=== PATIENT | male | born 1965 | race Caucasian/White ===

== ENCOUNTER 2019-02-18 00:33 | Emergency (ER) | payer BC ==
[2019-02-18] MEDS ORDERED: CEFTRIAXONE INJ 1000 MG VIAL IV ONE (02:09)
[2019-02-18] MEDS ORDERED: SULFAMETHOXAZOLE/TRIMETHOPRIM 800-160 MG TABLET PO ONE (02:09)
[2019-02-18] MEDS ORDERED: OXYCODONE HCL IR 5 MG TABLET PO ONE (02:09)
[2019-02-18] MEDS ORDERED: ONDANSETRON HCL INJ/PF 4 MG/2 ML SDV IV ONE (02:10)
--- NOTE | 2019-02-18 02:11 | ER Document Report ---
ED Medical Screen (RME) - General Chief Complaint: Skin Problem Stated Complaint: RIGHT LEG PAIN Time Seen by Provider: 02/18/19 02:09 Notes: 54-year-old male that comes emergency department with chief complaint of possible infection in his right leg. He states this started today when he started noticing pain, redness, and now the redness is spreading in his leg. He reports chills earlier today. He denies vomiting, recorded fever. He states he was told he is a "borderline diabetic". Tetanus is up-to-date within 5 years. Past medical history of COPD/smoking. TRAVEL OUTSIDE OF THE [place] IN LAST 30 DAYS: No - Related Data Allergies/Adverse Reactions: No Known Allergies Allergy (Unverified 08/24/15 17:35) Past Medical History Pulmonary Medical History: Reports: Hx COPD Physical Exam - Vital signs Vitals: Temp Pulse Resp BP Pulse Ox 98.7 F 109 H 18 119/74 93 02/18/19 00:43 02/18/19 00:43 02/18/19 00:43 02/18/19 00:43 02/18/19 00:43 - Extremities General lower extremity: Other - Right distal anterior tibial area with pain, erythema, abnormal heat, tenderness. Patient limps on the leg. Course - Re-evaluation Re-evalutation: I have greeted and performed a rapid initial assessment of this patient. A comprehensive ED assessment and evaluation of the patient, analysis of test results and completion of the medical decision making process will be conducted by additional ED providers. - Vital Signs Vital signs: Temp Pulse Resp BP Pulse Ox 98.7 F 109 H 18 119/74 93 02/18/19 00:43 02/18/19 00:43 02/18/19 00:43 02/18/19 00:43 02/18/19 00:43
[2019-02-18 02:54] LABS: HEMATOCRIT 50.4 % (37.9-51.0); HEMOGLOBIN 16.9 g/dL (13.5-17.0); MEAN CORPUSCULAR HEMOGLOBIN 30.9 pg (27.0-33.4); MEAN CORPUSCULAR HGB CONC 33.5 g/dL (32.0-36.0); MEAN CORPUSCULAR VOLUME 92 fl (80-97); PLATELET COUNT 185 10^3/uL (150-450); RED BLOOD COUNT 5.47 10^6/uL (4.35-5.55); RED CELL DISTRIBUTION WIDTH 14.2 % (11.5-14.0); WHITE BLOOD COUNT 21.3 10^3/uL (4.0-10.5)
[2019-02-18 03:16] LABS: ABSOLUTE LYMPHOCYTES# (MANUAL) 0.6 10^3/uL (0.5-4.7); ABSOLUTE MONOCYTES # (MANUAL) 1.3 10^3/uL (0.1-1.4); BAND NEUTROPHILS % (MANUAL) 4 % (3-5); BASOPHILS % (MANUAL) 0 % (0-2); EOSINOPHILS % (MANUAL) 0 % (0-6); LYMPHOCYTES % (MANUAL) 3 % (13-45); MONOCYTES % (MANUAL) 6 % (3-13); RBC MORPHOLOGY COMMENT NORMO-CYTIC/CHROMIC; SEGMENTED NEUTROPHILS % (MAN) 87 % (42-78); TOTAL CELLS COUNTED 100
[2019-02-18 03:17] LABS: PLATELET COMMENT ADEQUATE
[2019-02-18 03:19] LABS: ANION GAP 9 (5-19); BLOOD UREA NITROGEN 15 mg/dL (7-20); CALCIUM 9.9 mg/dL (8.4-10.2); CARBON DIOXIDE 29 mmol/L (22-30); CHLORIDE 99 mmol/L (98-107); GLUCOSE 123 mg/dL (75-110); POTASSIUM 4.4 mmol/L (3.6-5.0)
--- NOTE | 2019-02-18 04:12 | ER Document Report ---
ED General - General Chief Complaint: Skin Problem Stated Complaint: RIGHT LEG PAIN Time Seen by Provider: 02/18/19 02:09 Primary Care Provider: CHANTALE PEMBERTON PA-C [Primary Care Provider] - 02/20/19 Notes: Patient is a pleasant 54-year-old male who presents with complaint of redness and swelling to the right leg that progressed over the last 24 hours. Said he had a leg infection similar to this several years in the past that cleared up with outpatient antibiotics. Said he did feel febrile at home earlier but now feels much improved. He was seen in triage by the physician review assistant and given a dose of antibiotics. He says he feels much improved after this. Denies any vomiting. No diarrhea. No abdominal pain. No other complaints at this time. TRAVEL OUTSIDE OF THE [place] IN LAST 30 DAYS: No - Related Data Allergies/Adverse Reactions: No Known Allergies Allergy (Unverified 08/24/15 17:35) Past Medical History - Social History Smoking Status: Unknown if Ever Smoked Frequency of alcohol use: None Drug Abuse: None Family History: Reviewed & Not Pertinent Pulmonary Medical History: Reports: Hx COPD Review of Systems - Review of Systems Notes: My Normal Review Basic REVIEW OF SYSTEMS: CONSTITUTIONAL : Subjective fever EENT: Denies eye, ear, throat, or mouth pain or symptoms. Denies nasal or sinus congestion. CARDIOVASCULAR: Denies chest pain. RESPIRATORY: Denies cough, cold, or chest congestion. Denies shortness of breath, difficulty breathing, or wheezing. GASTROINTESTINAL: Denies abdominal pain. Denies nausea, vomiting, or diarrhea. MUSCULOSKELETAL: Pain right leg. SKIN: Cellulitis right leg NEUROLOGICAL: Denies altered mental status or loss of consciousness. Denies headache. Denies weakness or paralysis or loss of use of either side. Denies problems with gait or speech. Denies sensory or motor loss. ALL OTHER SYSTEMS REVIEWED AND NEGATIVE. Physical Exam - Vital signs Vitals: Temp Pulse Resp BP Pulse Ox 98.7 F 109 H 18 119/74 93 02/18/19 00:43 02/18/19 00:43 02/18/19 00:43 02/18/19 00:43 02/18/19 00:43 - Notes Notes: General Appearance: Well nourished, alert, cooperative, no acute distress, no obvious discomfort. Well-appearing. Vitals: reviewed, See vital signs table. Eyes: PERRL, EOMI, Conjuctiva clear Mouth: No decreasd moisture Lungs: No wheezing, No rales, No rhonci, No accessory muscle use, good air exchange bilaterally. Heart: Normal rate, Regular rythm, No murmur, no rub Abdomen: Normal BS, soft, No rigidity, No abdominal tenderness, No guarding, no rebound, no abdominal masses, no organomegaly Extremities: strength 5/5 in all extremities, good pulses in all extremities, some circumferential redness to the right lower extremity that extends from approximately the ankle to just below the knee. Good distal pulses. No crepitus to palpation. No pain out of proportion to exam. No fluctuance or concern for abscess at this time. Skin: warm, dry, appropriate color, no rash Neuro: speech clear, oriented x 3, normal affect, responds appropriately to questions. Course - Re-evaluation Re-evalutation: 02/18/19 05:28 I did juan josé the borders of the redness and the patient's leg with a marking pen. I did offer admission as patient does have a white blood cell count 21,000. Patient says that he feels much improved and would prefer to try outpatient therapy. Clinically patient does look well at this time. I informed him that he must have a very low threshold to return to the ER if he has any spreading redness whatsoever, fevers, or feels like he is worsening in any way. Patient is agreeable to this and will be discharged home with strong return precautions. Dictation of this chart was performed using voice recognition software; therefore, there may be some unintended grammatical errors. - Vital Signs Vital signs: Temp Pulse Resp BP Pulse Ox 97.9 F 88 18 118/74 94 02/18/19 04:20 02/18/19 04:20 02/18/19 04:20 02/18/19 04:20 02/18/19 04:20 - Laboratory Result Diagrams: 02/18/19 02:35 02/18/19 02:35 Laboratory results interpreted by me: 02/18/19 02/18/19 02:35 02:35 WBC 21.3 H RDW 14.2 H Seg Neuts % (Manual) 87 H Lymphocytes % (Manual) 3 L Abs Neuts (Manual) 19.4 H Sodium 136.9 L Glucose 123 H Discharge - Discharge Clinical Impression: Cellulitis Qualifiers: Site of cellulitis: unspecified site Qualified Code(s): L03.90 - Cellulitis, unspecified Condition: Good Disposition: HOME, SELF-CARE Additional Instructions: You have cellulitis which is infection of the skin of your leg. As discussed with you do have a high white blood cell count and therefore admission to the hospital would be an acceptable treatment plan. We do respect decision to want to go home and try outpatient treatment. You must have a very low threshold to return to the ER immediately if you have any spreading redness, swelling, fevers, or if you feel like your leg is worsening in any way. Please follow-up with your doctor on Wednesday for reevaluation. Take the antibiotic as prescribed. The antibiotic we have prescribed you is called doxycycline. Doxycycline will make your skin more sensitive to the sun so please make sure you keep your skin covered or wear sunscreen whenever out in the sun. Prescriptions: Doxycycline Hyclate 100 mg PO BID #14 capsule Referrals: CHANTALE PEMBERTON PA-C [Primary Care Provider] - 02/20/19
[2019-02-18 04:22] VITALS: BP 118/74
== END 2019-02-18 04:25 | disposition home or self-care (01) ==
LOC: ER 00:33
DX: L03.90 Cellulitis, unspecified (principal); M79.604 Pain in right leg; J44.9 Chronic obstructive pulmonary disease, unspecified
CPT/HCPCS: 99283; 96375; 96365; 36415; 85025; 80048; J0696; J2405

== ENCOUNTER 2019-02-19 16:28 | Inpatient (IN) | payer BC ==
[2019-02-19] MEDS ORDERED: KETOROLAC TROMETHAMINE INJ/PF 30 MG/1 ML SDV IV ONE (17:05)
--- NOTE | 2019-02-19 17:05 | ER Document Report ---
ED Medical Screen (RME) - General Chief Complaint: Leg Swelling Stated Complaint: RE-VISIT/RIGHT LEG PAIN Time Seen by Provider: 02/19/19 16:57 Primary Care Provider: CHANTALE PEMBERTON PA-C [Primary Care Provider] - Follow up as needed Mode of Arrival: Ambulatory Information source: Patient Notes: 54-year-old male presented to ED for redness pain and swelling to the right lower leg. The redness has gone outside of the lines that were drawn on his leg after he was here. Patient alert and oriented respirations regular and unlabored speaking. I have greeted and performed a rapid initial assessment of this patient. A comprehensive ED assessment and evaluation of the patient, analysis of test results and completion of medical decision making process will be conducted by an additional ED providers. TRAVEL OUTSIDE OF THE [place] IN LAST 30 DAYS: No - Related Data Allergies/Adverse Reactions: No Known Allergies Allergy (Verified 02/19/19 16:29) Past Medical History Pulmonary Medical History: Reports: Hx COPD Physical Exam - Vital signs Vitals: Temp Pulse Resp BP Pulse Ox 97.9 F 93 18 170/87 H 93 02/19/19 16:33 02/19/19 16:33 02/19/19 16:33 02/19/19 16:33 02/19/19 16:33 Course - Vital Signs Vital signs: Temp Pulse Resp BP Pulse Ox 97.9 F 93 18 170/87 H 93 02/19/19 16:33 02/19/19 16:33 02/19/19 16:33 02/19/19 16:33 02/19/19 16:33 Doctor's Discharge - Discharge Referrals: CHANTALE PEMBERTON PA-C [Primary Care Provider] - Follow up as needed
--- NOTE | 2019-02-19 18:23 | RADIOLOGY REPORT (SQ) ---
EXAM DESCRIPTION: VENOUS UNILATERAL LOWER COMPLETED DATE/TIME: 02/19/2019 6:13 pm REASON FOR STUDY: red swelling painful right leg COMPARISON: None. TECHNIQUE: Dynamic and static sanchez scale and color images acquired of the right leg venous system. S elected spectral images acquired with additional compression and augmentation maneuvers. The contrala teral common femoral vein and saphenofemoral junction were also imaged. Images stored on PACS. LIMITATIONS: Lower leg edema. FINDINGS: COMMON FEMORAL: Normal phasicity, compression and augmentation. No visualized echogenic ma terial on sanchez scale. No defects on color images. FEMORAL: Normal compression and augmentation. No visualized echogenic material on sanchez scale. No defe cts on color images. POPLITEAL: Normal compression, augmentation. No visualized echogenic material on sanchez scale. No defec ts on color images. CALF VESSELS: Poorly visualized due to lower leg edema. GSV and SSV: Normal compression, augmentation. No visualized echogenic material on sanchez scale. No def ects on color images. ANY DEEP VENOUS INSUFFICIENCY: Not evaluated. ANY EVIDENCE OF POPLITEAL CYST: No. OTHER: Lower leg edema. CONTRALATERAL COMMON FEMORAL VEIN AND SAPHENOFEMORAL JUNCTION: Normal phasicity, compression and augmentation. No visualized echogenic material on sanchez scale. No de fects on color images. IMPRESSION: Evaluation of the calf veins is limited by lower leg soft tissue edema. Within this landeros itation, no evidence of deep venous thrombosis in the right lower extremity. TECHNICAL DOCUMENTATION: JOB ID: [id number] [employer]- All Rights Reserved Reading location - IP/workstation name: [email or web address]
[2019-02-19 19:45] LABS: APPEARANCE,URINE CLOUDY; BILIRUBIN,URINE NEGATIVE (NEGATIVE); COLOR,URINE YELLOW; GLUCOSE, URINE 150 mg/dL (NEGATIVE); KETONES,URINE NEGATIVE (NEGATIVE); LEUKOCYTE ESTERASE,URINE NEGATIVE (NEGATIVE); NITRITE,URINE NEGATIVE (NEGATIVE); PROTEIN,URINE NEGATIVE (NEGATIVE); URINE SPECIFIC GRAVITY 1.021
[2019-02-19 19:49] LABS: ABSOLUTE EOSINOPHILS # (AUTO) 0.1 10^3/uL (0.0-0.6); ABSOLUTE MONOCYTES (AUTO) 1.1 10^3/uL (0.1-1.4); ABSOLUTE NEUT (AUTO) 7.7 10^3/uL (1.7-8.2); BASOPHILS % (AUTO) 0.2 % (0-2); EOSINOPHILS % (AUTO) 0.8 % (0-6); HEMATOCRIT 45.7 % (37.9-51.0); HEMOGLOBIN 15.3 g/dL (13.5-17.0); LYMPHOCYTES % (AUTO) 10.3 % (13-45); MEAN CORPUSCULAR HEMOGLOBIN 31.5 pg (27.0-33.4); MEAN CORPUSCULAR HGB CONC 33.6 g/dL (32.0-36.0); MEAN CORPUSCULAR VOLUME 94 fl (80-97); PLATELET COUNT 153 10^3/uL (150-450); RED BLOOD COUNT 4.87 10^6/uL (4.35-5.55); RED CELL DISTRIBUTION WIDTH 14.3 % (11.5-14.0); SEGMENTED NEUTROPHILS % (AUTO) 77.7 % (42-78); TOTAL CELLS COUNTED % (AUTO) 100 %; WHITE BLOOD COUNT 9.9 10^3/uL (4.0-10.5)
[2019-02-19 20:00] LABS: ALBUMIN 3.9 g/dL (3.5-5.0); ALKALINE PHOSPHATASE 64 U/L (38-126); ANION GAP 8 (5-19); ASPARTATE AMINO TRANSFERASE 17 U/L (17-59); BILIRUBIN,DIRECT 0.2 mg/dL (0.0-0.4); BILIRUBIN,TOTAL 0.3 mg/dL (0.2-1.3); BLOOD UREA NITROGEN 11 mg/dL (7-20); CALCIUM 9.2 mg/dL (8.4-10.2); CARBON DIOXIDE 30 mmol/L (22-30); CHLORIDE 101 mmol/L (98-107); GLUCOSE 94 mg/dL (75-110); POTASSIUM 4.1 mmol/L (3.6-5.0); TOTAL PROTEIN 6.3 g/dL (6.3-8.2)
[2019-02-19 20:30] LABS: ERYTHROCYTE SEDIMENTATION RATE 33 mm/hr (0-20)
--- NOTE | 2019-02-19 21:15 | ER Document Report ---
HPI - HPI Patient complains to provider of: cellulitis rle Time Seen by Provider: 02/19/19 16:57 Onset: Other - 2 days ago Onset/Duration: Sudden, Worse Quality of pain: Achy, Pressure Severity: Moderate Pain Level: 4 Context: 54 yr old male pt, with the listed pmh, here for worsening rle cellulitis x 2 days. states about 56 hrs ago sx initially started. he was seen here for this about 48hrs ago and didn't want admission for iv abx then as his work up revealed a white count of 21k and circumferential erythema and swelling and pain of his rle from his ankle about 3/[address] proximally to his knee. states had lines drawn on his leg about 3-4 inches proximally and distally from this current erythema demarcation 48 hrs ago and was told to return should the erythema extend up to those lines or past them. the erythema came up to those lines tonight so he came back in for re-eval as directed. he has had subjective fevers and rigors. he states he is a borderline diabetic. he takes no meds. pcp is frances in [facility]. he was given rocephin IV 2 days ago while here and dc'd on doxy bid. he has been compliant with the doxy and has his bottle with him. he denies any new injury or trauma. he states the leg has continued to worsen by becoming more red, swollen, and painful and he has just sat around the house and elevated it as he states if he keeps it not elevated for very long it started to hurt a lot worse and he has to then immediately elevate it again to sustain any relief. Pt denies any prior personal cardiac history. no syncope. no palpitations. no hx of mi, cva, tia, or cad. no ripping or tearing sensation. denies any blood thinners. No prior history of blood clots. No recent long distance travel/immobilization, recent surgery, exogenous hormone use, hemoptysis, history of cancer, or calf pain/swelling. No prior history of arrhythmias. denies htn sx or hx of htn. denies being told he ever required meds. he attributes his elevated bp due to his pain. no numbness, fever, cp, sob, elder, cough,abd pain, uti sx, mo, changes in neurologics, weakness or tingling. no surgeries on this extremity. otc meds helping little to none. no recent head injury or prior hx of tbi or head trauma. hasn't otherwise sought ca re until now. no pain anywhere else. pt able to walk but has pain. denies intoxication. pain worse with movement and palpation. better with rest. no other fall or trauma or associated sx Exacerbated by: Standing, Movement, Walking Relieved by: Supine, Remaining still Similar symptoms previously: Yes Recently seen / treated by doctor: Yes - ROS Systems Reviewed and Negative: Yes All other systems reviewed and negative - To include 10 systems, unless mentioned in the hpi. Past Medical History - General Information source: Patient - Social History Smoking Status: Current Every Day Smoker Frequency of alcohol use: Social Drug Abuse: Marijuana Lives with: Family Family History: Reviewed & Not Pertinent Patient has suicidal ideation: No Patient has homicidal ideation: No - Past Medical History Cardiac Medical History: Denies: Hx Atrial Fibrillation, Hx Congestive Heart Failure, Hx Coronary Artery Disease, Hx DVT, Hx Hypertension, Hx Peripheral Vascular Disease, Hx Pulmonary Embolism Pulmonary Medical History: Reports: Hx COPD - not on any meds Endocrine Medical History: Reports: Hx Diabetes Mellitus Type 2 - borderline per pt-not on any meds Malignancy Medical History: Reports None GI Medical History: Denies: Hx Cirrhosis Musculoskeletal Medical History: Denies Hx Gout Skin Medical History: Reports Hx Cellulitis, Denies Hx Eczema, Denies Hx Psoriasis Traumatic Medical History: Denies: Hx Fractures Infectious Medical History: Denies: Hx C-Diff, Hx Hepatitis, Hx HIV, Hx VRE Past Surgical History: Denies: Hx Orthopedic Surgery - Immunizations Immunizations up to date: Yes Vertical Provider Document - CONSTITUTIONAL Agree With Documented VS: Yes Exam Limitations: No Limitations Notes: GENERAL_APPEARANCE: alert and oriented x 3, mood and affect wnl, cooperative, m ild obvious discomfort. Pleasant, obese middle aged white male, smiling, speaking in full sentences, in no sign of pain or resp distress other than appearing in pain if you palpate his rle erythema, easily sitting up, brother at bedside VITALS: reviewed, see vital signs table. HEAD: no_swelling\tenderness on the head, normocephalic, atraumatic NECK: supple, no_neck_tenderness. full rom and full strength. HEART: RRR LUNGS: CTAB, good air exchange diffusely BACK: no_back_tenderness EXTREMITIES: good pulse in all extremities, right leg: right lower leg from just distal to the knee joint and patella to just proximal the ankle jt there is diffuse erythema with some darkened erythema anteriorly. there is marking on the skin for tracking purposes that the erythema has aligned up with now both proximally and distally. there are a few scattered erythematous papulopustules <1mm in diameter proximal to his right knee on his upper leg that appear like possible ant bites, along with some dry skin areas vs crusted over and prior scared areas measuring approx <5mm and circular white flaky like diffusely but scattered and mild throughout the stated erythema. it is nearly circumferential- the erythema, and worse in swelling, pain, redness, and size per pt, no palpable cords. no posterior leg ttp. no sign of septic jt, compartment syndrome or gout. no oozing or bleeding. 2-3+ pitting edema in the erythema of the rle. none in the lle. lle wnl, and no_abrasions\lacerations other than as noted. Full rom and full strength. slight antalgic gait. good hand cutting pressman. brisk cap refill. no other shortening or rotation of the limbs or obvious deformities to suggest trauma unless otherwise noted. no other swelling or ttp. neg nino sign. neg foot drop. neg kulkarni squeeze. no sign of cold leg. normal temp of the foot to palpation. SKIN: warm, dry, good_color. no other grossly visible rash. no other grossly visible overlying skin changes to suggest trauma NEURO: cerebellar function intact, motor_intact and sensory_intact in injured_extremity. cranial nerves 2-12 intact - INFECTION CONTROL TRAVEL OUTSIDE OF THE [place] IN LAST 30 DAYS: No Course - Re-evaluation Re-evalutation: 02/19/19 21:14 Pt here for worsening and somewhat impressive rle cellulitis that has failed out pt po abx x 48hrs. sx initially started around 56hrs ago abruptly and seems to be abruptly worsening which is concerning given pt has elevated and rested his leg and endorses compliance with abx. labs unremarkable and as noted other than an elevated sed rate and crp. his white count was 21k 2 days ago when he was here which i am unsure if this was a lab error given his wbc count is normal today; however, exam appears to be significantly worse. bcx pending. lactic wnl. responded well to tx here and is pain controlled. afebrile. triage ordered a rle doppler US to r/o dvt/pe and the final rad read states the study was limited due to her body habitus but was grossly unremarkable otherwise and showed no grossly visible dvt per rad or acute finding and was other belle neg for anything acute per rad and reviewed by myself. pt informed of her findings. advised her that her bp was also elevated here today. she denies htn sx. advised she needs to f/u with his pcp for recheck of this as she may need to be placed on bp meds. f/u with pcp/obgyn once she is deemed safe for dc per hospitalist. pt understands and agrees to plan. vss. neurononfocal. secondary to pts worsening cellulits and likely failure of out pt abx, i did initiate the vanco and zosyn per 20mg/kg dose of vanco and 4.5g dose zosyn per dr grey. pt discussed with dr willard (hospitalist) who graciously agreed to accept the pt to their service for further workup and tx. care transferred to the hospitalist in stable condition. please refer to their note for further details of her visit. vss On reexam, pt improved with tx listed. remained stable. nontoxic. well appearing. pain controlled. case discussed with ER Attending, Dr. solorio, who directed and agrees with plan of care and advised to admit for failure of out pt abx for his RLE cellulitis and to defer to hospitalist's recommendations for IV abx choice. Documentation achieved through voice recording which may lead to some occasional accidental typographical errors. Extensive efforts have been made to proof read documentation to make sure these are the least as possible. 02/19/19 22:55 Category Date Time Status VENOUS UNILATERAL LOWER [CARDIO] Stat Cardiology 02/19/19 17:00 Completed BLOOD CULTURE [MC] Stat Lab 02/19/19 20:30 Received C-REACTIVE PROTEIN [CHEM] Stat Lab 02/19/19 19:17 Completed CBC WITH DIFF [HEME] Stat Lab 02/19/19 19:17 Completed COMPREHENSIVE METABOLIC PANEL [CHEM] Stat Lab 02/19/19 19:17 Completed LACTIC ACID SEPSIS [CHEM] Stat Lab 02/19/19 19:17 Completed Sed Rate [ERYTHROCYTE SEDIMENTATION RATE] [HEME] Stat Lab 02/19/19 19:17 Completed URINALYSIS [URIN] Stat Lab 02/19/19 19:17 Completed Ketorolac Tromethamine [Toradol Inj/Pf 30 mg/1 ml Sdv] Med 02/19/19 17:05 Discontinued 30 mg IV NOW ONE Nicotine [Nicoderm 14 mg/24 Hr Transdermal Patch] Med 02/19/19 22:04 Discontinued 1 each TD NOW ONE Nicotine [Nicoderm 14 mg/24 Hr Transdermal Patch] Med 02/19/19 22:23 Discontinued 1 each TD NOW ONE Piperacillin Sodium/Tazobactam [Zosyn Inj 3.375 gm Vial Med 02/19/19 22:44 Once ] 4.5 gm IV IVBAG (ED) ONE Vancomycin HCl [Vancocin Inj 1000 mg Vial] Med 02/19/19 22:45 Once 2,412 mg IV NOW ONE 02/19/19 22:56 - Vital Signs Vital signs: Temp Pulse Resp BP Pulse Ox 97.9 F 93 18 170/87 H 93 02/19/19 16:33 02/19/19 16:33 02/19/19 16:33 02/19/19 16:33 02/19/19 16:33 02/20/19 10:14 Temp Pulse Resp BP Pulse Ox 97.6 F 75 14 138/77 H 96 02/20/19 08:16 02/20/19 09:38 02/20/19 09:38 02/20/19 08:16 02/20/19 09:38 - Laboratory Result Diagrams: 02/20/19 05:40 02/20/19 05:40 Laboratory results interpreted by me: 02/19/19 02/19/19 02/19/19 19:17 19:17 19:17 RDW 14.3 H Lymph % (Auto) 10.3 L ESR 33 H C-Reactive Protein 231.0 H Urine Glucose (UA) 150 H Urine Blood SMALL H Urine Urobilinogen 4.0 H 02/19/19 21:14 Labs- Entire Visit 02/19/19 02/19/19 02/19/19 19:17 19:17 19:17 WBC 9.9 RBC 4.87 Hgb 15.3 Hct 45.7 MCV 94 MCH 31.5 MCHC 33.6 RDW 14.3 H Plt Count 153 Lymph % (Auto) 10.3 L [place] % (Auto) 11.0 Eos % (Auto) 0.8 Baso % (Auto) 0.2 Absolute Neuts (auto) 7.7 Absolute Lymphs (auto) 1.0 Absolute Monos (auto) 1.1 Absolute Eos (auto) 0.1 Absolute Basos (auto) 0.0 Seg Neutrophils % 77.7 ESR 33 H Sodium 139.2 Potassium 4.1 Chloride 101 Carbon Dioxide 30 Anion Gap 8 BUN 11 Creatinine 0.74 Est GFR ( Amer) > 60 Est GFR (MDRD) Non-Af > 60 Glucose 94 Lactic Acid 1.2 Calcium 9.2 Total Bilirubin 0.3 Direct Bilirubin 0.2 Neonat Total Bilirubin Not Reportable Neonat Direct Bilirubin Not Reportable Neonat Indirect Bili Not Reportable AST 17 ALT 27 Alkaline Phosphatase 64 C-Reactive Protein 231.0 H Total Protein 6.3 Albumin 3.9 Urine Color Urine Appearance Urine pH Ur Specific [place] Urine Protein Urine Glucose (UA) Urine Ketones Urine Blood Urine Nitrite Urine Bilirubin Urine Urobilinogen Ur Leukocyte Esterase Urine WBC (Auto) Urine RBC (Auto) Urine Mucus (Auto) Urine Ascorbic Acid 02/19/19 19:17 WBC RBC Hgb Hct MCV MCH MCHC RDW Plt Count Lymph % (Auto) [place] % (Auto) Eos % (Auto) Baso % (Auto) Absolute Neuts (auto) Absolute Lymphs (auto) Absolute Monos (auto) Absolute Eos (auto) Absolute Basos (auto) Seg Neutrophils % ESR Sodium Potassium Chloride Carbon Dioxide Anion Gap BUN Creatinine Est GFR ( Amer) Est GFR (MDRD) Non-Af Glucose Lactic Acid Calcium Total Bilirubin Direct Bilirubin Neonat Total Bilirubin Neonat Direct Bilirubin Neonat Indirect Bili AST ALT Alkaline Phosphatase C-Reactive Protein Total Protein Albumin Urine Color YELLOW Urine Appearance CLOUDY Urine pH 7.0 Ur Specific [place] 1.021 Urine Protein NEGATIVE Urine Glucose (UA) 150 H Urine Ketones NEGATIVE Urine Blood SMALL H Urine Nitrite NEGATIVE Urine Bilirubin NEGATIVE Urine Urobilinogen 4.0 H Ur Leukocyte Esterase NEGATIVE Urine WBC (Auto) 0 Urine RBC (Auto) 10 Urine Mucus (Auto) RARE Urine Ascorbic Acid NEGATIVE - Diagnostic Test Radiology reviewed: Image reviewed, Reports reviewed Radiology results interpreted by me: 02/19/19 21:14 Venous Doppler Study 02/19/19 17:00 IMPRESSION: Evaluation of the calf veins is limited by lower leg soft tissue edema. Within this limitation, no evidence of deep venous thrombosis in the right lower extremity. Discharge - Discharge Clinical Impression: Cellulitis of leg, right High blood pressure Qualifiers: Hypertension type: essential hypertension Qualified Code(s): I10 - Essential (primary) hypertension Condition: Good Disposition: ADMITTED INPATIENT Admitting Provider: Candi (Hospitalist) - spoke with hospitalist dr willard at 10:45pm who graciously agreed to accept the pt for further workup and tx Unit Admitted: Medical Floor
[2019-02-19] MEDS ORDERED: NICOTINE 14 MG/24 HR PATCH.TD24 TD ONE ×2 (22:04→22:23)
[2019-02-19] MEDS ORDERED: PIPERACILLIN/TAZOBACTAM 3.375 GM VIAL IV ONE (22:44)
[2019-02-19] MEDS ORDERED: VANCOMYCIN HCL INJ 1000 MG VIAL IV ONE (22:45)
[2019-02-19] MEDS ORDERED: HYDRALAZINE HCL INJ/PF 20 MG/1 ML SDV IV PRN (22:57)
[2019-02-19] MEDS ORDERED: MAG HYDROX/AL HYDROX/SIMETH SUSP 30 ML UDCUP PO PRN (22:58)
[2019-02-19] MEDS ORDERED: MAGNESIUM HYDROXIDE SUSP 30 ML UDCUP PO PRN (22:58)
[2019-02-19] MEDS ORDERED: DEXTROSE 40% GEL 15 GM TUBE PO PRN ×2 (22:59)
[2019-02-19] MEDS ORDERED: DEXTROSE 50%-WATER 25 GM/50 ML DISP.SYRIN IV PRN ×2 (22:59)
[2019-02-19] MEDS ORDERED: GLUCAGON,HUMAN RECOMB 1 MG INJ IM PRN (22:59)
[2019-02-19] MEDS ORDERED: VANCOMYCIN HCL INJ 1000 MG VIAL IV SCH (23:00)
[2019-02-19] MEDS ORDERED: PIPERACILLIN/TAZOBACTAM 3.375 GM VIAL IV PRN (23:15)
[2019-02-19] MEDS ORDERED: LEVALBUTEROL HCL NEB 0.63 MG/3 ML AMPUL NEB PRN (23:44)
[2019-02-20] LABS: FREE T3 3.07 pg/mL (2.77-5.27); FREE T4 (FREE THYROXINE) 0.81 ng/dL (0.78-2.19)
[2019-02-20] MEDS: IBUPROFEN 800 MG TABLET PO PRN (00:12)
[2019-02-20] MEDS: NALBUPHINE HCL INJ 10 MG/1 ML AMPULE IV PRN ×4 (02:11→23:43)
--- NOTE | 2019-02-20 02:11 | PDOC H&P ---
History of Present Illness Admission Date/PCP: 02/19/2019 22:57 CHANTALE PEMBERTON PA-C Patient complains of: Painful swollen right lower extremity History of Present Illness: DHRUV ADAM is a 54 year old male who presented to the emergency room with a 2- day history of a swollen and painful right lower extremity. Patient admits that this is his second ER visit in 2 days for this problem. He admits increased swelling and increased pain in the right lower extremity despite treatment with 1 dose of intravenous Rocephin and oral doxycycline initiated on his previous ER visit 2 days ago. He rates his pain as severe and notes that the pain is been accompanied over the last 24 hours by subjective fever with chills and a decreased ability to ambulate due to the severity of the pain and the worsening of the pain with movement. He notes the pain is relieved somewhat by rest and elevation. He denies prior similar episodes and has not identified any aggravating or ameliorating factors for his right lower extremity pain. In the emergency room he was found to have a worsening appearance of his wound from his previous evaluation 2 days ago despite an improvement in his white blood count. Patient was subsequently admitted to the hospital for further evaluation and treatment due to clinical failure of outpatient treatment. Past Medical History Cardiac Medical History: Denies: Coronary Artery Disease, DVT, Myocardial Infarction, Hyperlipidema, Hypertension, Pulmonary Embolism Pulmonary Medical History: Reports: Chronic Obstructive Pulmonary Disease (COPD), Sleep Apnea - Uses CPAP every night Denies: Asthma EENT Medical History: Denies: Cataracts, Ears - Hearing aids Neurological Medical History: Denies: Hemorrhagic CVA, Ischemic CVA, Seizures Endocrine Medical History: Reports: Diabetes Mellitus Type 2 - Was told he was "borderline" at 1 time, Obesity Denies: Diabetes Mellitus Type 1, Hyperthyroidism, Hypothyroidism Renal/ Medical History: Denies: Chronic Kidney Disease, Nephrolithiasis Malignancy Medical History: Reports: None GI Medical History: Denies: Cirrhosis, Crohn's Disease, Hepatitis, Ulcerative Colitis Musculoskeltal Medical History: Denies: Arthritis, Gout Skin Medical History: Denies: Eczema, Psoriasis Psychiatric Medical History: Reports: Substance Abuse, Tobacco Dependency Denies: Alcohol Dependency Traumatic Medical History: Reports: None Hematology: Denies: Anemia, Bleeding Tendencies Infectious Medical History: Reports: None Past Surgical History Past Surgical History: Reports: None Social History Information Source: Patient Smoking Status: Current Every Day Smoker Frequency of Alcohol Use: Occasional Hx Recreational Drug Use: Yes Drugs: Marijuana - Occasional use Hx Prescription Drug Abuse: No - Advance Directive Resuscitation Status: Full Code Surrogate healthcare decision maker:: Lata Ayala Family History Family History: DM, Hypertension Parental Family History Reviewed: Yes Children Family History Reviewed: No Sibling(s) Family History Reviewed.: Yes Medication/Allergy Home Medications: Albuterol Sulfate [Ventolin 0.083% Neb 2.5 mg/3 mL Ampul] 2.5 mg NEB [id number] #30 vial.neb 08/26/15 Alprazolam [Xanax 0.5 mg Tablet] 0.5 mg PO Q12HP PRN #10 tab 08/26/15 Budesonide [Pulmicort Flexhaler] 180 mcg IH BID #1 aer.[email or web address] 08/26/15 Levofloxacin [Levaquin 750 mg Tablet] 750 mg PO DAILY #8 tablet 08/26/15 Nicotine [Nicoderm 21 mg/24 Hr Transderm Patch] 1 each TD DAILY #30 patch.[email or web address] 08/26/15 Prednisone 20 mg PO ASDIR PRN #15 tablet 08/26/15 Tiotropium [place] [Spiriva Handihaler 5 Cap/Kit (18 Mcg/Cap)] 1 cap IH DAILY #30 kit 08/26/15 Doxycycline Hyclate 100 mg PO BID #14 capsule 02/18/19 Allergies/Adverse Reactions: No Known Allergies Allergy (Verified 02/19/19 16:29) Review of Systems Constitutional: PRESENT: as per HPI, chills, fever(s) Eyes: ABSENT: visual disturbances, other - Ocular pain Ears: ABSENT: hearing changes, other - Ear pain Nose, Mouth, and Throat: ABSENT: mouth pain, sore throat Cardiovascular: ABSENT: chest pain, palpitations Respiratory: ABSENT: cough, dyspnea Gastrointestinal: ABSENT: abdominal pain, constipation, diarrhea, nausea, vomiting Genitourinary: ABSENT: dysuria, hematuria Musculoskeletal: ABSENT: back pain, joint swelling, muscle weakness Integumentary: PRESENT: as per HPI, erythema - Erythema edema and local tenderness in the right lower extremity. ABSENT: pruritus, rash Neurological: ABSENT: confusion, convulsions, focal weakness, memory loss, syncope Psychiatric: ABSENT: anxiety, depression Endocrine: ABSENT: cold intolerance, heat intolerance Hematologic/Lymphatic: ABSENT: easy bleeding, easy bruising Allergic/Immunologic: ABSENT: seasonal rhinorrhea Physical Exam Vital Signs: Temp Pulse Resp BP Pulse Ox 97.9 F 93 18 170/87 H 93 02/19/19 16:33 02/19/19 16:33 02/19/19 16:33 02/19/19 16:33 02/19/19 16:33 Intake & Output 02/17/19 02/18/19 02/19/19 23:59 23:59 23:59 Weight 120.6 kg General appearance: PRESENT: no acute distress, cooperative, morbidly obese Head exam: PRESENT: atraumatic, normocephalic Eye exam: PRESENT: conjunctiva pink. ABSENT: conjunctival injection, scleral icterus Ear exam: PRESENT: normal external ear exam. ABSENT: bleeding, drainage Mouth exam: PRESENT: dry mucosa, neck supple Neck exam: ABSENT: thyromegaly, tracheal deviation Respiratory exam: PRESENT: clear to auscultation evgeny, symmetrical, unlabored Cardiovascular exam: PRESENT: RRR. ABSENT: clicks, gallop, rubs Pulses: PRESENT: normal radial pulses, normal dorsalis pedis pul Vascular exam: PRESENT: normal capillary refill. ABSENT: pallor GI/Abdominal exam: PRESENT: normal bowel sounds, soft Rectal exam: PRESENT: deferred Extremities exam: PRESENT: tenderness - Circumferential erythema and edema with tenderness to palpation and increased warmth to touch from just below the knee to just above the ankle of the right lower leg with no evidence of induration or fluctuance.. ABSENT: joint swelling, pedal edema Musculoskeletal exam: PRESENT: tenderness - As noted above. ABSENT: deformity, dislocation Neurological exam: PRESENT: alert, oriented to person, oriented to place, oriented to time, oriented to situation, CN II-XII grossly intact. ABSENT: motor sensory deficit Psychiatric exam: PRESENT: appropriate affect, normal mood Skin exam: PRESENT: dry, erythema - Erythema edema multiple tenderness of the right calf is previously noted, intact, warm. ABSENT: jaundice, rash, urticaria Results Laboratory Results: 02/19/19 19:17 02/19/19 19:17 02/19/19 02/19/19 02/19/19 19:17 19:17 19:17 WBC 9.9 RBC 4.87 Hgb 15.3 Hct 45.7 MCV 94 MCH 31.5 MCHC 33.6 RDW 14.3 H Plt Count 153 Seg Neutrophils % 77.7 Sodium 139.2 Potassium 4.1 Chloride 101 Carbon Dioxide 30 Anion Gap 8 BUN 11 Creatinine 0.74 Est GFR ( Amer) > 60 Glucose 94 Lactic Acid 1.2 Calcium 9.2 Total Bilirubin 0.3 AST 17 Alkaline Phosphatase 64 C-Reactive Protein 231.0 H Total Protein 6.3 Albumin 3.9 Urine Color Urine Appearance Urine pH Ur Specific [place] Urine Protein Urine Glucose (UA) Urine Ketones Urine Blood Urine Nitrite Ur Leukocyte Esterase Urine WBC (Auto) Urine RBC (Auto) 02/19/19 19:17 WBC RBC Hgb Hct MCV MCH MCHC RDW Plt Count Seg Neutrophils % Sodium Potassium Chloride Carbon Dioxide Anion Gap BUN Creatinine Est GFR ( Amer) Glucose Lactic Acid Calcium Total Bilirubin AST Alkaline Phosphatase C-Reactive Protein Total Protein Albumin Urine Color YELLOW Urine Appearance CLOUDY Urine pH 7.0 Ur Specific [place] 1.021 Urine Protein NEGATIVE Urine Glucose (UA) 150 H Urine Ketones NEGATIVE Urine Blood SMALL H Urine Nitrite NEGATIVE Ur Leukocyte Esterase NEGATIVE Urine WBC (Auto) 0 Urine RBC (Auto) 10 Impressions: Venous Doppler Study 02/19/19 17:00 IMPRESSION: Evaluation of the calf veins is limited by lower leg soft tissue edema. Within this limitation, no evidence of deep venous thrombosis in the right lower extremity. Assessment and Plan - Diagnosis (1) Cellulitis of right lower leg Is this a current diagnosis for this admission?: Yes Plan: Patient will be admitted for IV antibiotic therapy utilizing vancomycin and Zosyn. Daily CBCs and metabolic profiles with magnesium levels will be obtained. Surgical consultation will be considered if the leg does not progress in healing. (2) Pain in right lower leg Is this a current diagnosis for this admission?: Yes Plan: Patient receive Nubain 510 mg IV every 3 hours on an as needed basis for pain via sliding scale. He will also have ibuprofen and Tylenol available for lesser pain. (3) High blood pressure Qualifiers: Hypertension type: essential hypertension Qualified Code(s): I10 - Essential (primary) hypertension Is this a current diagnosis for this admission?: Yes Plan: Patient's blood pressure be monitored closely throughout his hospital course. Initially he will be treated with as needed dosing of hydralazine 20 mg IV every 4 hours for blood pressure greater than 160 systolic or 100 diastolic. (4) Morbid obesity with BMI of 40.0-44.9, adult Is this a current diagnosis for this admission?: Yes Plan: Patient will receive a dietary consult for weight reduction and overall improvement in dietary health. (5) Tobacco use disorder, severe, dependence Is this a current diagnosis for this admission?: Yes Plan: Smoking cessation is advised and counseled briefly at the bedside. A nicotine replacement patch will be available for the patient's use as desired. (6) Sleep apnea in adult Is this a current diagnosis for this admission?: Yes Plan: Patient will be on nocturnal CPAP using his home setting of 8. - Time Time Spent with patient: 15-24 minutes Smoking Cessation Education: 3 to 10 minutes Medications reviewed and adjusted accordingly: Yes Anticipated discharge: Home - Inpatient Certification Based on my medical assessment, after consideration of the patient's comorbidities, presenting symptoms, or acuity I expect that the services needed warrant INPATIENT care.: Yes I certify that my determination is in accordance with my understanding of Medicare's requirements for reasonable and necessary INPATIENT services [42 CFR 412.3e].: Yes Medical Necessity: Failure to Improve With Outpatient Therapy, Need for Pain Control, Need for IV Antibiotics, Risk of Complication if Not Cared For in Hospital
[2019-02-20] MEDS ORDERED: PIPERACILLIN/TAZOBACTAM 3.375 GM VIAL IV ONE (03:58)
[2019-02-20] MEDS: HEPARIN SOD (PORCINE) 5,000 UNIT/ML 1 ML VIAL SUBCUT SCH ×3 (05:29→22:36)
[2019-02-20] MEDS: PIPERACILLIN SODIUM/TAZOBACTAM 3.375 GM in NORMAL SALINE 100 ML IV SCH ×4 (05:44→23:43)
[2019-02-20 06:39] LABS: HEMATOCRIT 43.9 % (37.9-51.0); HEMOGLOBIN 14.7 g/dL (13.5-17.0); MEAN CORPUSCULAR HEMOGLOBIN 31.5 pg (27.0-33.4); MEAN CORPUSCULAR HGB CONC 33.5 g/dL (32.0-36.0); MEAN CORPUSCULAR VOLUME 94 fl (80-97); PLATELET COUNT 160 10^3/uL (150-450); RED BLOOD COUNT 4.66 10^6/uL (4.35-5.55); RED CELL DISTRIBUTION WIDTH 14.2 % (11.5-14.0); WHITE BLOOD COUNT 8.8 10^3/uL (4.0-10.5)
[2019-02-20 07:08] LABS: ANION GAP 8 (5-19); BLOOD UREA NITROGEN 10 mg/dL (7-20); CALCIUM 8.9 mg/dL (8.4-10.2); CARBON DIOXIDE 29 mmol/L (22-30); CHLORIDE 102 mmol/L (98-107); CHOLESTEROL 131.78 mg/dL (0-200); GLUCOSE 110 mg/dL (75-110); POTASSIUM 4.1 mmol/L (3.6-5.0); TRIGLYCERIDES 160 mg/dL (<150)
[2019-02-20 07:19] LABS: DIRECT LDL 85 mg/dL (<100)
[2019-02-20] MEDS: INSULIN REG, HUMAN 100 UNIT/ML 3 ML VIAL (PYX) SUBCUT SCH ×4 (08:12→21:40)
[2019-02-20] MEDS: DOCUSATE SODIUM 100 MG CAPSULE PO SCH ×2 (09:25→17:14)
[2019-02-20] MEDS: FAMOTIDINE 20 MG TABLET PO SCH ×2 (09:25→22:36)
--- NOTE | 2019-02-20 09:56 | PDOC PROGRESS REPORT ---
Subjective Progress Note for:: 02/20/19 Subjective:: 02/20/2019-no complaints this a.m. Reason For Visit: CELLULITIS Physical Exam Vital Signs: Temp Pulse Resp BP Pulse Ox 97.6 F 75 14 138/77 H 96 02/20/19 08:16 02/20/19 09:38 02/20/19 09:38 02/20/19 08:16 02/20/19 09:38 Intake & Output 02/19/19 02/20/19 02/21/19 06:59 06:59 06:59 Intake Total 500 Balance 500 Weight 117.6 kg General appearance: PRESENT: no acute distress, well-developed, well-nourished Head exam: PRESENT: atraumatic, normocephalic Eye exam: PRESENT: conjunctiva pink, EOMI, PERRLA. ABSENT: scleral icterus Ear exam: PRESENT: normal external ear exam Mouth exam: PRESENT: moist, tongue midline Neck exam: ABSENT: carotid bruit, JVD, lymphadenopathy, thyromegaly Respiratory exam: PRESENT: clear to auscultation evgeny. ABSENT: rales, rhonchi, wheezes Cardiovascular exam: PRESENT: RRR. ABSENT: diastolic murmur, rubs, systolic murmur Pulses: PRESENT: normal dorsalis pedis pul Vascular exam: PRESENT: normal capillary refill GI/Abdominal exam: PRESENT: normal bowel sounds, soft. ABSENT: distended, guarding, mass, organolmegaly, rebound, tenderness Rectal exam: PRESENT: deferred Extremities exam: PRESENT: full ROM. ABSENT: calf tenderness, clubbing, pedal edema Neurological exam: PRESENT: alert, awake, oriented to person, oriented to place, oriented to time, oriented to situation, CN II-XII grossly intact. ABSENT: motor sensory deficit Psychiatric exam: PRESENT: appropriate affect, normal mood. ABSENT: homicidal ideation, suicidal ideation Skin exam: PRESENT: dry, intact, warm, other - Cellulitis extending from below right knee to ankle. ABSENT: cyanosis, rash Results Laboratory Results: 02/20/19 05:40 02/20/19 05:40 02/19/19 02/19/19 02/19/19 19:17 19:17 19:17 WBC 9.9 RBC 4.87 Hgb 15.3 Hct 45.7 MCV 94 MCH 31.5 MCHC 33.6 RDW 14.3 H Plt Count 153 Seg Neutrophils % 77.7 Sodium 139.2 Potassium 4.1 Chloride 101 Carbon Dioxide 30 Anion Gap 8 BUN 11 Creatinine 0.74 Est GFR ( Amer) > 60 Glucose 94 Lactic Acid 1.2 Calcium 9.2 Magnesium Total Bilirubin 0.3 AST 17 Alkaline Phosphatase 64 C-Reactive Protein 231.0 H Total Protein 6.3 Albumin 3.9 Triglycerides Cholesterol LDL Cholesterol Direct VLDL Cholesterol HDL Cholesterol TSH Free T4 Free T3 pg/mL Urine Color Urine Appearance Urine pH Ur Specific [place] Urine Protein Urine Glucose (UA) Urine Ketones Urine Blood Urine Nitrite Ur Leukocyte Esterase Urine WBC (Auto) Urine RBC (Auto) 02/19/19 02/19/19 02/20/19 19:17 19:17 05:40 WBC 8.8 RBC 4.66 Hgb 14.7 Hct 43.9 MCV 94 MCH 31.5 MCHC 33.5 RDW 14.2 H Plt Count 160 Seg Neutrophils % Sodium Potassium Chloride Carbon Dioxide Anion Gap BUN Creatinine Est GFR ( Amer) Glucose Lactic Acid Calcium Magnesium Total Bilirubin AST Alkaline Phosphatase C-Reactive Protein Total Protein Albumin Triglycerides Cholesterol LDL Cholesterol Direct VLDL Cholesterol HDL Cholesterol TSH Free T4 0.81 Free T3 pg/mL 3.07 Urine Color YELLOW Urine Appearance CLOUDY Urine pH 7.0 Ur Specific [place] 1.021 Urine Protein NEGATIVE Urine Glucose (UA) 150 H Urine Ketones NEGATIVE Urine Blood SMALL H Urine Nitrite NEGATIVE Ur Leukocyte Esterase NEGATIVE Urine WBC (Auto) 0 Urine RBC (Auto) 10 02/20/19 02/20/19 05:40 05:40 WBC RBC Hgb Hct MCV MCH MCHC RDW Plt Count Seg Neutrophils % Sodium 138.6 Potassium 4.1 Chloride 102 Carbon Dioxide 29 Anion Gap 8 BUN 10 Creatinine 0.70 Est GFR ( Amer) > 60 Glucose 110 Lactic Acid Calcium 8.9 Magnesium 1.9 Total Bilirubin AST Alkaline Phosphatase C-Reactive Protein Total Protein Albumin Triglycerides 160 H Cholesterol 131.78 LDL Cholesterol Direct 85 VLDL Cholesterol 32.0 H HDL Cholesterol 37 L TSH 1.05 Free T4 Free T3 pg/mL Urine Color Urine Appearance Urine pH Ur Specific [place] Urine Protein Urine Glucose (UA) Urine Ketones Urine Blood Urine Nitrite Ur Leukocyte Esterase Urine WBC (Auto) Urine RBC (Auto) Impressions: Venous Doppler Study 02/19/19 17:00 IMPRESSION: Evaluation of the calf veins is limited by lower leg soft tissue edema. Within this limitation, no evidence of deep venous thrombosis in the right lower extremity. Assessment and Plan - Diagnosis (1) Cellulitis of right lower leg Is this a current diagnosis for this admission?: Yes Plan: Patient will be admitted for IV antibiotic therapy utilizing vancomycin and Zosyn. Daily CBCs and metabolic profiles with magnesium levels will be obtained. Surgical consultation will be considered if the leg does not progress in healing 02/20/2019-patient remains on IV vancomycin and Zosyn. Await cultures. Surgical consultation not required at this time. (2) Pain in right lower leg Is this a current diagnosis for this admission?: Yes Plan: Patient receive Nubain 510 mg IV every 3 hours on an as needed basis for pain via sliding scale. He will also have ibuprofen and Tylenol available for lesser pain. 02/20/2019-continue Nubain as ordered previously. (3) High blood pressure Qualifiers: Hypertension type: essential hypertension Qualified Code(s): I10 - Essential (primary) hypertension Is this a current diagnosis for this admission?: Yes Plan: Patient's blood pressure be monitored closely throughout his hospital course. Initially he will be treated with as needed dosing of hydralazine 20 mg IV every 4 hours for blood pressure greater than 160 systolic or 100 diastolic. 02/20/2019-stable at this time continue to follow (4) Morbid obesity with BMI of 40.0-44.9, adult Is this a current diagnosis for this admission?: Yes Plan: Patient will receive a dietary consult for weight reduction and overall improvement in dietary health. 02/20/2019-continue to educate about benefits of weight loss (5) Tobacco use disorder, severe, dependence Is this a current diagnosis for this admission?: Yes Plan: Smoking cessation is advised and counseled briefly at the bedside. A nicotine replacement patch will be available for the patient's use as desired. 02/20/2019-continue to educate about the benefits of smoking cessation (6) Sleep apnea in adult Is this a current diagnosis for this admission?: Yes Plan: Patient will be on nocturnal CPAP using his home setting of 8. 02/20/2019-continue home CPAP - Time Time Spent with patient: 15-24 minutes - Inpatient Certification Based on my medical assessment, after consideration of the patient's comorbidities, presenting symptoms, or acuity I expect that the services needed warrant INPATIENT care.: Yes I certify that my determination is in accordance with my understanding of Medicare's requirements for reasonable and necessary INPATIENT services [42 CFR 412.3e].: Yes Medical Necessity: Other - IV antibiotics, pain control
[2019-02-20] MEDS: NICOTINE 21 MG/24 HR PATCH.TD24 TD PRN (17:20)
[2019-02-21] MEDS: HEPARIN SOD (PORCINE) 5,000 UNIT/ML 1 ML VIAL SUBCUT SCH ×3 (05:36→21:21)
[2019-02-21] MEDS: PIPERACILLIN SODIUM/TAZOBACTAM 3.375 GM in NORMAL SALINE 100 ML IV SCH ×3 (05:37→17:16)
[2019-02-21] MEDS: NALBUPHINE HCL INJ 10 MG/1 ML AMPULE IV PRN (05:41)
[2019-02-21 06:18] LABS: HEMATOCRIT 46.1 % (37.9-51.0); HEMOGLOBIN 15.4 g/dL (13.5-17.0); MEAN CORPUSCULAR HEMOGLOBIN 31.1 pg (27.0-33.4); MEAN CORPUSCULAR HGB CONC 33.3 g/dL (32.0-36.0); MEAN CORPUSCULAR VOLUME 93 fl (80-97); RED BLOOD COUNT 4.94 10^6/uL (4.35-5.55); RED CELL DISTRIBUTION WIDTH 14.2 % (11.5-14.0); WHITE BLOOD COUNT 10.4 10^3/uL (4.0-10.5)
[2019-02-21 06:41] LABS: ANION GAP 10 (5-19); BLOOD UREA NITROGEN 11 mg/dL (7-20); CALCIUM 9.1 mg/dL (8.4-10.2); CARBON DIOXIDE 28 mmol/L (22-30); CHLORIDE 98 mmol/L (98-107); GLUCOSE 142 mg/dL (75-110); POTASSIUM 4.3 mmol/L (3.6-5.0)
[2019-02-21 07:16] LABS: PLATELET COUNT 172 10^3/uL (150-450)
[2019-02-21] MEDS: DOCUSATE SODIUM 100 MG CAPSULE PO SCH ×2 (10:37→17:16)
[2019-02-21] MEDS: FAMOTIDINE 20 MG TABLET PO SCH ×2 (10:37→21:21)
--- NOTE | 2019-02-21 15:26 | PDOC PROGRESS REPORT ---
Subjective Progress Note for:: 02/21/19 Subjective:: This is a 54 year old male with hypertension who presented with swelling and pain in the right lower extremity. Patient was admitted for right leg cellulitis. No acute event overnight. He still complains of pain in the right leg albeit this is slightly improved from yesterday. The erythema and swelling have not gone beyond demarcations from yesterday. He says the redness and swelling are slightly improved from yesterday. Reason For Visit: CELLULITIS Physical Exam Vital Signs: Temp Pulse Resp BP Pulse Ox 97.9 F 76 20 142/73 H 96 02/21/19 11:12 02/21/19 11:12 02/21/19 11:12 02/21/19 11:12 02/21/19 11:12 Intake & Output 02/20/19 02/21/19 02/22/19 06:59 06:59 06:59 Intake Total 500 1538 680 Balance 500 1538 680 Weight 259 lb 4.218 oz 258 lb 2.581 oz General appearance: PRESENT: no acute distress, well-developed, well-nourished Head exam: PRESENT: atraumatic, normocephalic Eye exam: PRESENT: conjunctiva pink, EOMI, PERRLA. ABSENT: scleral icterus Ear exam: PRESENT: normal external ear exam Mouth exam: PRESENT: moist, tongue midline Neck exam: ABSENT: carotid bruit, JVD, lymphadenopathy, thyromegaly Respiratory exam: PRESENT: clear to auscultation evgeny. ABSENT: rales, rhonchi, wheezes Cardiovascular exam: PRESENT: RRR. ABSENT: diastolic murmur, rubs, systolic murmur Pulses: PRESENT: normal dorsalis pedis pul GI/Abdominal exam: PRESENT: normal bowel sounds, soft. ABSENT: distended, guarding, mass, organolmegaly, rebound, tenderness Rectal exam: PRESENT: deferred Extremities exam: PRESENT: tenderness - Notable erythema and swelling on the right leg Neurological exam: PRESENT: alert, awake, oriented to person, oriented to place, oriented to time, oriented to situation, CN II-XII grossly intact. ABSENT: motor sensory deficit Results Laboratory Results: 02/21/19 05:32 02/21/19 05:32 02/21/19 02/21/19 05:32 05:32 WBC 10.4 RBC 4.94 Hgb 15.4 Hct 46.1 MCV 93 MCH 31.1 MCHC 33.3 RDW 14.2 H Plt Count 172 Sodium 136.3 L Potassium 4.3 Chloride 98 Carbon Dioxide 28 Anion Gap 10 BUN 11 Creatinine 0.69 Est GFR ( Amer) > 60 Glucose 142 H Calcium 9.1 Magnesium 1.9 Impressions: Venous Doppler Study 02/19/19 17:00 IMPRESSION: Evaluation of the calf veins is limited by lower leg soft tissue edema. Within this limitation, no evidence of deep venous thrombosis in the right lower extremity. Assessment and Plan - Diagnosis (1) Cellulitis of right lower leg Is this a current diagnosis for this admission?: Yes Plan: Slightly improved. Continue IV antibiotics for now. (2) Hypertension Is this a current diagnosis for this admission?: Yes Plan: Blood pressures running in the 140 systolic mostly. Will continue to monitor blood pressure trends and see if we have to initiate antihypertensive at this time. (3) Morbid obesity with BMI of 40.0-44.9, adult Is this a current diagnosis for this admission?: Yes Plan: Patient is a BMI of 40.4. Counseled on weight loss, exercise and diet. (4) Sleep apnea in adult Is this a current diagnosis for this admission?: Yes Plan: CPAP at night. - Time Time Spent with patient: 25-34 minutes
[2019-02-21] MEDS: IBUPROFEN 800 MG TABLET PO PRN (20:07)
[2019-02-21] MEDS: NICOTINE 21 MG/24 HR PATCH.TD24 TD PRN (20:08)
[2019-02-21] MEDS: VANCOMYCIN HCL 1,250 MG in DEXTROSE 5%-WATER 250 ML IV SCH (22:31)
[2019-02-22] MEDS: PIPERACILLIN SODIUM/TAZOBACTAM 3.375 GM in NORMAL SALINE 100 ML IV SCH ×4 (00:49→17:56)
[2019-02-22] MEDS: VANCOMYCIN HCL 1,250 MG in DEXTROSE 5%-WATER 250 ML IV SCH ×2 (04:05→13:33)
[2019-02-22 05:58] LABS: ANION GAP 9 (5-19); BLOOD UREA NITROGEN 12 mg/dL (7-20); CALCIUM 9.2 mg/dL (8.4-10.2); CARBON DIOXIDE 32 mmol/L (22-30); CHLORIDE 99 mmol/L (98-107); GLUCOSE 108 mg/dL (75-110); POTASSIUM 4.5 mmol/L (3.6-5.0)
[2019-02-22] MEDS: HEPARIN SOD (PORCINE) 5,000 UNIT/ML 1 ML VIAL SUBCUT SCH ×2 (06:01→13:34)
[2019-02-22 07:01] LABS: HEMATOCRIT 45.3 % (37.9-51.0); HEMOGLOBIN 15.3 g/dL (13.5-17.0); MEAN CORPUSCULAR HEMOGLOBIN 31.4 pg (27.0-33.4); MEAN CORPUSCULAR HGB CONC 33.8 g/dL (32.0-36.0); MEAN CORPUSCULAR VOLUME 93 fl (80-97); PLATELET COUNT 191 10^3/uL (150-450); RED BLOOD COUNT 4.88 10^6/uL (4.35-5.55); RED CELL DISTRIBUTION WIDTH 13.7 % (11.5-14.0); WHITE BLOOD COUNT 6.1 10^3/uL (4.0-10.5)
[2019-02-22] MEDS: IBUPROFEN 800 MG TABLET PO PRN ×2 (09:58→16:01)
[2019-02-22] MEDS: DOCUSATE SODIUM 100 MG CAPSULE PO SCH ×2 (09:59→17:55)
[2019-02-22] MEDS: FAMOTIDINE 20 MG TABLET PO SCH (09:59)
[2019-02-22] MEDS: ACETAMINOPHEN 325 MG TABLET PO PRN (14:37)
--- NOTE | 2019-02-22 16:07 | PDOC PROGRESS REPORT ---
Subjective Progress Note for:: 02/22/19 Subjective:: This is a 54 year old male with hypertension who presented with swelling and pain in the right lower extremity. Patient was admitted for right leg cellulitis. 02/21: He still complains of pain in the right leg albeit this is slightly improved from yesterday. The erythema and swelling have not gone beyond demarcations from yesterday. He says the redness and swelling are slightly improved from yesterday. 02/22: No acute event overnight. He says the pain is much better today. There is slight improvement in the redness from yesterday. No fever or chills. Reason For Visit: CELLULITIS Physical Exam Vital Signs: Temp Pulse Resp BP Pulse Ox 97.7 F 71 17 115/77 95 02/22/19 11:59 02/22/19 11:59 02/22/19 11:59 02/22/19 11:59 02/22/19 11:59 Intake & Output 02/21/19 02/22/19 02/23/19 06:59 06:59 06:59 Intake Total 1538 1480 680 Balance 1538 1480 680 Weight 258 lb 2.581 oz 259 lb 4.218 oz General appearance: PRESENT: no acute distress, well-developed, well-nourished Head exam: PRESENT: atraumatic, normocephalic Eye exam: PRESENT: conjunctiva pink, EOMI, PERRLA. ABSENT: scleral icterus Ear exam: PRESENT: normal external ear exam Mouth exam: PRESENT: moist, tongue midline Neck exam: ABSENT: carotid bruit, JVD, lymphadenopathy, thyromegaly Respiratory exam: PRESENT: clear to auscultation evgeny. ABSENT: rales, rhonchi, wheezes Cardiovascular exam: PRESENT: RRR. ABSENT: diastolic murmur, rubs, systolic murmur Pulses: PRESENT: normal dorsalis pedis pul GI/Abdominal exam: PRESENT: normal bowel sounds, soft. ABSENT: distended, guarding, mass, organolmegaly, rebound, tenderness Rectal exam: PRESENT: deferred Neurological exam: PRESENT: alert, awake, oriented to person, oriented to place, oriented to time, oriented to situation, CN II-XII grossly intact. ABSENT: motor sensory deficit Results Laboratory Results: 02/22/19 04:04 02/22/19 04:04 02/22/19 02/22/19 04:04 04:04 WBC 6.1 RBC 4.88 Hgb 15.3 Hct 45.3 MCV 93 MCH 31.4 MCHC 33.8 RDW 13.7 Plt Count 191 Sodium 139.7 Potassium 4.5 Chloride 99 Carbon Dioxide 32 H Anion Gap 9 BUN 12 Creatinine 0.73 Est GFR ( Amer) > 60 Glucose 108 Calcium 9.2 Magnesium 2.2 Impressions: Venous Doppler Study 02/19/19 17:00 IMPRESSION: Evaluation of the calf veins is limited by lower leg soft tissue edema. Within this limitation, no evidence of deep venous thrombosis in the right lower extremity. Assessment and Plan - Diagnosis (1) Cellulitis of right lower leg Is this a current diagnosis for this admission?: Yes Plan: Slowly improving. Continue IV antibiotics for now. (2) Hypertension Is this a current diagnosis for this admission?: Yes Plan: Controlled. (3) Morbid obesity with BMI of 40.0-44.9, adult Is this a current diagnosis for this admission?: Yes Plan: Patient has a BMI of 40.4. Counseled on weight loss, exercise and diet. (4) Sleep apnea in adult Is this a current diagnosis for this admission?: Yes Plan: CPAP at night. - Time Time Spent with patient: 15-24 minutes
[2019-02-22 21:16] LABS: VANCOMYCIN,TROUGH 8.2 ug/mL (5.0-20.0)
[2019-02-22] MEDS: NICOTINE 21 MG/24 HR PATCH.TD24 TD PRN (22:00)
[2019-02-23] MEDS: HEPARIN SOD (PORCINE) 5,000 UNIT/ML 1 ML VIAL SUBCUT SCH ×4 (00:08→21:51)
[2019-02-23] MEDS: PIPERACILLIN SODIUM/TAZOBACTAM 3.375 GM in NORMAL SALINE 100 ML IV SCH ×3 (00:09→14:45)
[2019-02-23] MEDS: FAMOTIDINE 20 MG TABLET PO SCH ×3 (00:09→21:50)
[2019-02-23] MEDS: VANCOMYCIN HCL 1,250 MG in DEXTROSE 5%-WATER 250 ML IV SCH ×2 (00:09→05:25)
[2019-02-23] MEDS ORDERED: SULFAMETHOXAZOLE/TRIMETHOPRIM 800-160 MG TABLET PO ONE (09:00)
[2019-02-23] MEDS: DOCUSATE SODIUM 100 MG CAPSULE PO SCH ×2 (10:19→18:44)
[2019-02-23] MEDS: ACETAMINOPHEN 325 MG TABLET PO PRN ×2 (10:34→18:47)
--- NOTE | 2019-02-23 14:59 | PDOC PROGRESS REPORT ---
Subjective Progress Note for:: 02/23/19 Subjective:: This is a 54 year old male with hypertension who presented with swelling and pain in the right lower extremity. Patient was admitted for right leg cellulitis. 02/21: He still complains of pain in the right leg albeit this is slightly improved from yesterday. The erythema and swelling have not gone beyond demarcations from yesterday. He says the redness and swelling are slightly improved from yesterday. 02/22: He says the pain is much better today. There is slight improvement in the redness from yesterday. No fever or chills. 02/23: His IV went and last night and he missed his IV antibiotics last evening and this morning. There is minimal improvement in the erythema. He says pain is much better today. Reason For Visit: CELLULITIS Physical Exam Vital Signs: Temp Pulse Resp BP Pulse Ox 97.3 F 77 16 148/84 H 81 L 02/23/19 10:55 02/23/19 10:55 02/23/19 10:55 02/23/19 10:55 02/23/19 10:55 Intake & Output 02/22/19 02/23/19 02/24/19 06:59 06:59 06:59 Intake Total 1480 1270 750 Balance 1480 1270 750 Weight 259 lb 4.218 oz 260 lb 9.382 oz General appearance: PRESENT: no acute distress, well-developed, well-nourished Head exam: PRESENT: atraumatic, normocephalic Eye exam: PRESENT: conjunctiva pink, EOMI, PERRLA. ABSENT: scleral icterus Ear exam: PRESENT: normal external ear exam Mouth exam: PRESENT: moist, tongue midline Neck exam: ABSENT: carotid bruit, JVD, lymphadenopathy, thyromegaly Respiratory exam: PRESENT: clear to auscultation evgeny. ABSENT: rales, rhonchi, wheezes Cardiovascular exam: PRESENT: RRR. ABSENT: diastolic murmur, rubs, systolic murmur Pulses: PRESENT: normal dorsalis pedis pul GI/Abdominal exam: PRESENT: normal bowel sounds, soft. ABSENT: distended, guarding, mass, organolmegaly, rebound, tenderness Rectal exam: PRESENT: deferred Extremities exam: PRESENT: other - erythema on right leg Neurological exam: PRESENT: alert, awake, oriented to person, oriented to place, oriented to time, oriented to situation, CN II-XII grossly intact. ABSENT: motor sensory deficit Results Laboratory Results: 02/22/19 04:04 02/22/19 20:41 02/22/19 20:41 Creatinine 0.96 Est GFR ( Amer) > 60 Impressions: Venous Doppler Study 02/19/19 17:00 IMPRESSION: Evaluation of the calf veins is limited by lower leg soft tissue edema. Within this limitation, no evidence of deep venous thrombosis in the right lower extremity. Assessment and Plan - Diagnosis (1) Cellulitis of right lower leg Is this a current diagnosis for this admission?: Yes Plan: Slowly improving. Continue IV antibiotics for now. (2) Hypertension Is this a current diagnosis for this admission?: Yes Plan: Controlled. (3) Morbid obesity with BMI of 40.0-44.9, adult Is this a current diagnosis for this admission?: Yes Plan: Patient has a BMI of 40.4. Counseled on weight loss, exercise and diet. (4) Sleep apnea in adult Is this a current diagnosis for this admission?: Yes Plan: CPAP at night. - Time Time Spent with patient: 15-24 minutes
[2019-02-23] MEDS: CLINDAMYCIN 600 MG/D5W RTU 600 MG/50 ML RTUPB IV SCH (21:53)
[2019-02-23] MEDS ORDERED: SULFAMETHOXAZOLE/TRIMETHOPRIM 800-160 MG TABLET PO SCH (22:00)
[2019-02-24 05:31] LABS: ANION GAP 9 (5-19); BLOOD UREA NITROGEN 14 mg/dL (7-20); CALCIUM 9.2 mg/dL (8.4-10.2); CARBON DIOXIDE 31 mmol/L (22-30); CHLORIDE 98 mmol/L (98-107); GLUCOSE 110 mg/dL (75-110); POTASSIUM 4.9 mmol/L (3.6-5.0)
[2019-02-24] MEDS: CLINDAMYCIN 600 MG/D5W RTU 600 MG/50 ML RTUPB IV SCH (06:36)
[2019-02-24] MEDS: HEPARIN SOD (PORCINE) 5,000 UNIT/ML 1 ML VIAL SUBCUT SCH (06:39)
[2019-02-24 10:42] VITALS: BP 142/74
--- NOTE | 2019-02-25 17:04 | PDOC DISCHARGE SUMMARY ---
General - Admit/Disc Date/PCP Admission Date/Primary Care Provider: 02/19/19 23:05 CHANTALE PEMBERTON PA-C Discharge Date: 02/24/19 - Discharge Diagnosis (1) Cellulitis of right lower leg Is this a current diagnosis for this admission?: Yes (2) Hypertension Is this a current diagnosis for this admission?: Yes (3) Morbid obesity with BMI of 40.0-44.9, adult Is this a current diagnosis for this admission?: Yes (4) Sleep apnea in adult Is this a current diagnosis for this admission?: Yes - Additional Information Resuscitation Status: Full Code Discharge Diet: As Tolerated Discharge Activity: Activity As Tolerated Prescriptions: Sulfamethoxazole/Trimethoprim [Bactrim Ds Tablet] 1 each PO BID 7 Days #14 tablet Home Medications: Sulfamethoxazole/Trimethoprim [Bactrim Ds Tablet] 1 each PO BID 7 Days #14 tablet 02/24/19 History of Present Illness History of Present Illness: Admitting hospitalist's H&P: DHRUV ADAM is a 54 year old male who presented to the emergency room with a 2- day history of a swollen and painful right lower extremity. Patient admits that this is his second ER visit in 2 days for this problem. He admits increased swelling and increased pain in the right lower extremity despite treatment with 1 dose of intravenous Rocephin and oral doxycycline initiated on his previous ER visit 2 days ago. He rates his pain as severe and notes that the pain is been accompanied over the last 24 hours by subjective fever with chills and a decreased ability to ambulate due to the severity of the pain and the worsening of the pain with movement. He notes the pain is relieved somewhat by rest and elevation. He denies prior similar episodes and has not identified any aggravating or ameliorating factors for his right lower extremity pain. In the emergency room he was found to have a worsening appearance of his wound from his previous evaluation 2 days ago despite an improvement in his white blood count. Patient was subsequently admitted to the hospital for further evaluation and treatment due to clinical failure of outpatient treatment. Hospital Course Hospital Course: This is a 54 year old male with hypertension who presented with swelling and pain in the right lower extremity. Patient was admitted for right leg cellulitis. He was started on IV antibiotics. He had a slow but gradual improvement in the redness and swelling. His pain also completely resolved. He still had erythematous cellulitic lesions on the right leg albeit they continue to improve. He will be discharged on p.o. Bactrim for 7 more days and will closely follow-up with his PCP. Physical Exam Vital Signs: Temp Pulse Resp BP Pulse Ox 98.2 F 76 14 142/74 H 97 02/24/19 10:40 02/24/19 10:40 02/24/19 10:40 02/24/19 10:40 02/24/19 10:40 Intake & Output 02/24/19 02/25/19 02/26/19 06:59 06:59 06:59 Intake Total 1200 50 Output Total 200 Balance 1000 50 Weight 260 lb 2.327 oz General appearance: PRESENT: no acute distress, well-developed, well-nourished Head exam: PRESENT: atraumatic, normocephalic Eye exam: PRESENT: conjunctiva pink, EOMI, PERRLA. ABSENT: scleral icterus Ear exam: PRESENT: normal external ear exam Mouth exam: PRESENT: moist, tongue midline Neck exam: ABSENT: carotid bruit, JVD, lymphadenopathy, thyromegaly Respiratory exam: PRESENT: clear to auscultation evgeyn. ABSENT: rales, rhonchi, wheezes Cardiovascular exam: PRESENT: RRR. ABSENT: diastolic murmur, rubs, systolic murmur Pulses: PRESENT: normal dorsalis pedis pul GI/Abdominal exam: PRESENT: normal bowel sounds, soft. ABSENT: distended, guarding, mass, organolmegaly, rebound, tenderness Rectal exam: PRESENT: deferred Musculoskeletal exam: PRESENT: other - erythematous lesions on the right leg Neurological exam: PRESENT: alert, awake, oriented to person, oriented to place, oriented to time, oriented to situation, CN II-XII grossly intact. ABSENT: motor sensory deficit Results Laboratory Results: 02/22/19 04:04 02/24/19 04:00 02/19/19 20:30 Blood Blood Culture - Final NO GROWTH IN 5 DAYS 02/19/19 19:17 Blood Blood Culture - Final NO GROWTH IN 5 DAYS Impressions: Venous Doppler Study 02/19/19 17:00 IMPRESSION: Evaluation of the calf veins is limited by lower leg soft tissue edema. Within this limitation, no evidence of deep venous thrombosis in the right lower extremity. Qualifiers - * PATIENT BEING DISCHARGED WITH ANY OF THE FOLLOWING DIAGNOSIS: No Acute Heart Failure - Is this a Heart Failure Patient?: No
== END 2019-02-24 10:56 | disposition home or self-care (01) | DRG 603 ==
LOC: ER 16:28 → EH 23:05 → 4N 02-20 01:22
PROVIDERS: ADMIT Emergency Medicine; ATTEND Emergency Medicine
PROC: 5A09357 Assistance with Respiratory Ventilation, Less than 24 Consecutive Hours, Continuous Positive Airway Pressure (ICD-10-PCS; principal; 2019-02-20)
DX: L03.115 Cellulitis of right lower limb (principal); Z68.41 Body mass index [BMI] 40.0-44.9, adult; E66.01 Morbid (severe) obesity due to excess calories; I10 Essential (primary) hypertension; G47.30 Sleep apnea, unspecified; J44.9 Chronic obstructive pulmonary disease, unspecified; E11.9 Type 2 diabetes mellitus without complications; F12.10 Cannabis abuse, uncomplicated; F17.200 Nicotine dependence, unspecified, uncomplicated; Z83.3 Family history of diabetes mellitus; Z82.49 Family history of ischemic heart disease and other diseases of the circulatory system; Z71.6 Tobacco abuse counseling
CPT/HCPCS: 36415; 80048; 80053; 80061; 80202; 81001; 82565; 82962; 83036; 83605; 83735; 84439; 84443; 84481; 85025; 85027; 85652; 86140; 87040; 93971; 94660; 96374; 99284; J1644; J1885; J2300; J2543; J3370; J3490; J7050; J7060

== ENCOUNTER 2020-05-18 15:48 | Emergency (ER) | payer SELFPAY ==
--- NOTE | 2020-05-18 16:12 | ER Document Report ---
ED Medical Screen (RME) - General Chief Complaint: Leg Swelling Stated Complaint: LEFT LEG SWELLING Time Seen by Provider: 05/18/20 16:08 Primary Care Provider: CHANTALE PEMBERTON PA-C [Primary Care Provider] - Follow up as needed Mode of Arrival: Ambulatory Information source: Patient Notes: 55-year-old male presented to ED for swelling to the left leg since Wednesday. He has had cellulitis to the to the right leg in the past. Now his pain and swelling is to the left leg there is some mild redness but not a dark red like it was on the right leg. We will get blood urine and Doppler to ensure there is no blood clots in the leg and check for infection. He is alert oriented respirations regular nonlabored speaking in full sentences. States he had a fever Wednesday night lasted about 4 hours before the redness or pain started. He states that his phone is started swelling and turning red but he has not had a fever since then. I have greeted and performed a rapid initial assessment of this patient. A comprehensive ED assessment and evaluation of the patient, analysis of test results and completion of medical decision making process will be conducted by a n additional ED providers. TRAVEL OUTSIDE OF THE [place] IN LAST 30 DAYS: No - Related Data Allergies/Adverse Reactions: No Known Allergies Allergy (Verified 05/18/20 16:08) Past Medical History - Past Medical History Cardiac Medical History: Denies: Hx Atrial Fibrillation, Hx Congestive Heart Failure, Hx Coronary Artery Disease, Hx DVT, Hx Heart Attack, Hx Hypercholesterolemia, Hx Hypertension, Hx Peripheral Vascular Disease, Hx Pulmonary Embolism Pulmonary Medical History: Reports: Hx COPD - not on any meds, Hx Sleep Apnea - Uses CPAP every night Denies: Hx Asthma Neurological Medical History: Denies: Hx Seizures Endocrine Medical History: Reports: Hx Diabetes Mellitus Type 2 - borderline per pt-not on any meds. Denies: Hx Diabetes Mellitus Type 1, Hx Hyperthyroidism, Hx Hypothyroidism GI Medical History: Denies: Hx Cirrhosis, Hx Crohn's Disease, Hx Hepatitis, Hx Ulcerative Colitis Musculoskeltal Medical History: Denies Hx Arthritis, Denies Hx Gout Skin Medical History: Reports Hx Cellulitis, Denies Hx Eczema, Denies Hx Psoriasis Psychiatric Medical History: Denies: Hx Depression Traumatic Medical History: Denies: Hx Fractures Infectious Medical History: Denies: Hx C-Diff, Hx Hepatitis, Hx HIV, Hx VRE Past Surgical History: Denies: Hx Orthopedic Surgery - Immunizations Immunizations up to date: Yes Physical Exam - Vital signs Vitals: Temp Pulse Resp BP Pulse Ox 98.1 F 91 16 147/82 H 95 05/18/20 15:52 05/18/20 15:52 05/18/20 15:52 05/18/20 15:52 05/18/20 15:52 Course - Vital Signs Vital signs: Temp Pulse Resp BP Pulse Ox 98.1 F 91 16 147/82 H 95 05/18/20 15:52 05/18/20 15:52 05/18/20 15:52 05/18/20 15:52 05/18/20 15:52 Doctor's Discharge - Discharge Referrals: CHANTALE PEMBERTON PA-C [Primary Care Provider] - Follow up as needed
[2020-05-18 17:20] LABS: ABSOLUTE EOSINOPHILS # (AUTO) 0.1 10^3/uL (0.0-0.6); ABSOLUTE LYMPHOCYTES (AUTO) 1.3 10^3/uL (0.5-4.7); ABSOLUTE MONOCYTES (AUTO) 1.2 10^3/uL (0.1-1.4); ABSOLUTE NEUT (AUTO) 4.6 10^3/uL (1.7-8.2); BASOPHILS % (AUTO) 0.6 % (0-2); EOSINOPHILS % (AUTO) 1.8 % (0-6); HEMATOCRIT 49.6 % (37.9-51.0); LYMPHOCYTES % (AUTO) 17.9 % (13-45); MEAN CORPUSCULAR HEMOGLOBIN 31.2 pg (27.0-33.4); MEAN CORPUSCULAR HGB CONC 34.3 g/dL (32.0-36.0); MEAN CORPUSCULAR VOLUME 91 fl (80-97); MONOCYTES % (AUTO) 16.3 % (3-13); PLATELET COUNT 156 10^3/uL (150-450); RED BLOOD COUNT 5.46 10^6/uL (4.35-5.55); RED CELL DISTRIBUTION WIDTH 13.7 % (11.5-14.0); SEGMENTED NEUTROPHILS % (AUTO) 63.4 % (42-78); TOTAL CELLS COUNTED % (AUTO) 100 %; WHITE BLOOD COUNT 7.2 10^3/uL (4.0-10.5)
[2020-05-18 17:35] LABS: APPEARANCE,URINE CLEAR; BILIRUBIN,URINE NEGATIVE (NEGATIVE); COLOR,URINE YELLOW; GLUCOSE, URINE NEGATIVE (NEGATIVE); KETONES,URINE NEGATIVE (NEGATIVE); LEUKOCYTE ESTERASE,URINE NEGATIVE (NEGATIVE); NITRITE,URINE NEGATIVE (NEGATIVE); PROTEIN,URINE NEGATIVE (NEGATIVE); URINE SPECIFIC GRAVITY 1.021; UROBILINOGEN,URINE NEGATIVE mg/dL (<2.0)
[2020-05-18 17:41] LABS: ALBUMIN 4.6 g/dL (3.5-5.0); ALKALINE PHOSPHATASE 62 U/L (38-126); ANION GAP 8 (5-19); ASPARTATE AMINO TRANSFERASE 19 U/L (17-59); BILIRUBIN,DIRECT 0.2 mg/dL (0.0-0.4); BILIRUBIN,TOTAL 0.5 mg/dL (0.2-1.3); BLOOD UREA NITROGEN 14 mg/dL (7-20); CALCIUM 9.7 mg/dL (8.4-10.2); CARBON DIOXIDE 28 mmol/L (22-30); CHLORIDE 98 mmol/L (98-107); GLUCOSE 133 mg/dL (75-110); POTASSIUM 4.2 mmol/L (3.6-5.0); TOTAL PROTEIN 7.2 g/dL (6.3-8.2)
--- NOTE | 2020-05-18 20:12 | ER Document Report ---
ED Extremity Problem, Lower - General Chief Complaint: Leg Swelling Stated Complaint: LEFT LEG SWELLING Time Seen by Provider: 05/18/20 16:08 Primary Care Provider: CHANTALE PEMBERTON PA-C [Primary Care Provider] - Follow up in 3-5 days Mode of Arrival: Ambulatory TRAVEL OUTSIDE OF THE [place] IN LAST 30 DAYS: No - HPI Notes: 55-year-old male with past medical history for COPD, leg cellulitis, obesity to the emergency department with complaints of left leg swelling, pain, redness that began 2 days ago and is progressively gotten worse. He states this is how his last cellulitis started on his right leg. He states that it did not do well and he had to be admitted. He states that the redness to his left leg is not nearly as severe as it had been in the past. He admits to a fever last night. He states that he has not been recently traveling. He does not history of DVTs in his leg. He denies any shortness of breath or chest pain. [id number] pain medicines have not been working for pain control. - Related Data Allergies/Adverse Reactions: No Known Allergies Allergy (Verified 05/18/20 16:08) Past Medical History - General Information source: Patient - Social History Smoking Status: Current Every Day Smoker Chew tobacco use (# tins/day): No Frequency of alcohol use: Social Drug Abuse: Marijuana Family History: Reviewed & Not Pertinent Patient has homicidal ideation: No - Past Medical History Cardiac Medical History: Denies: Hx Atrial Fibrillation, Hx Congestive Heart Failure, Hx Coronary Artery Disease, Hx DVT, Hx Heart Attack, Hx Hypercholesterolemia, Hx Hypertension, Hx Peripheral Vascular Disease, Hx Pulmonary Embolism Pulmonary Medical History: Reports: Hx COPD - not on any meds, Hx Sleep Apnea - Uses CPAP every night Denies: Hx Asthma Neurological Medical History: Denies: Hx Seizures Endocrine Medical History: Reports: Hx Diabetes Mellitus Type 2 - borderline per pt-not on any meds. Denies: Hx Diabetes Mellitus Type 1, Hx Hyperthyroidism, Hx Hypothyroidism GI Medical History: Denies: Hx Cirrhosis, Hx Crohn's Disease, Hx Hepatitis, Hx Ulcerative Colitis Musculoskeletal Medical History: Denies Hx Arthritis, Denies Hx Gout Skin Medical History: Reports Hx Cellulitis, Denies Hx Eczema, Denies Hx Psoriasis Psychiatric Medical History: Denies: Hx Depression Traumatic Medical History: Denies: Hx Fractures Infectious Medical History: Denies: Hx C-Diff, Hx Hepatitis, Hx HIV, Hx VRE Past Surgical History: Denies: Hx Orthopedic Surgery - Immunizations Immunizations up to date: Yes Review of Systems - Review of Systems Constitutional: denies: Chills, Fever EENT: No symptoms reported Cardiovascular: denies: Chest pain, Palpitations, Heart racing, Orthopnea, Dizziness, Lightheaded, Edema Respiratory: denies: Cough, Short of breath Gastrointestinal: denies: Abdominal pain, Diarrhea, Nausea, Vomiting Genitourinary: No symptoms reported Musculoskeletal: See HPI, Leg swelling Skin: See HPI, Change in color Hematologic/Lymphatic: No symptoms reported. denies: Blood clots Neurological/Psychological: No symptoms reported -: Yes All other systems reviewed and negative Physical Exam - Vital signs Vitals: Temp Pulse Resp BP Pulse Ox 98.1 F 91 16 147/82 H 95 05/18/20 15:52 05/18/20 15:52 05/18/20 15:52 05/18/20 15:52 05/18/20 15:52 Interpretation: Hypertensive - Notes Notes: PHYSICAL EXAMINATION: GENERAL: Well-appearing, well-nourished and in no acute distress. HEAD: Atraumatic, normocephalic. EYES: Pupils equal round and reactive to light, extraocular movements intact, sclera anicteric, conjunctiva are normal. ENT: nares patent, oropharynx clear without exudates. Moist mucous membranes. NECK: Normal range of motion, supple without lymphadenopathy LUNGS: Breath sounds clear to auscultation bilaterally and equal. No wheezes rales or rhonchi. HEART: Regular rate and rhythm without murmurs ABDOMEN: Soft, nontender, normoactive bowel sounds. Obesity. no guarding, no rebound. No masses appreciated. EXTREMITIES: There is tenderness to palpation to the left lower extremity with noted edema and erythema with warmth. It extends from the ankle up to the mid calf. There is tenderness to palpation over the calf. DP pulses are intact and equal. Cap refill in all toes is less than 2 seconds. There is no tenderness to palpation to the left hip, left knee. He has full range of motion against resistance in flexion and extension bilateral lower extremities. Redness was marked and dated. NEUROLOGICAL: No focal neurological deficits. Moves all extremities spontaneously and on command. PSYCH: Normal mood, normal affect. SKIN: Warm, Dry, normal turgor, no rashes or lesions noted. Course - Re-evaluation Re-evalutation: Impression: Left leg cellulitis. Noted lab work and negative DVT study. We will go ahead and place the patient on clindamycin. He is to return immediately if the redness comes out of the lines marked. Also will have him return for a wound check in 2 days. Patient agrees with the plan. PCP follow-up. - Vital Signs Vital signs: Temp Pulse Resp BP Pulse Ox 97.2 F 90 20 137/82 H 97 05/18/20 20:49 05/18/20 20:49 05/18/20 20:49 05/18/20 20:49 05/18/20 20:49 - Laboratory Result Diagrams: 05/18/20 16:46 05/18/20 16:46 Laboratory results interpreted by me: 05/18/20 05/18/20 05/18/20 16:46 16:46 16:46 [place] % (Auto) 16.3 H Sodium 133.6 L Glucose 133 H Urine Blood SMALL H - Diagnostic Test Radiology reviewed: Image reviewed, Reports reviewed Discharge - Discharge Clinical Impression: Left leg cellulitis, Left leg swelling, Left leg pain Condition: Stable Disposition: HOME, SELF-CARE Instructions: Cellulitis ([facility]) Additional Instructions: Today you had a negative ultrasound for clot in your leg. Your lab work was very reassuring but we do believe you have a cellulitis of your left lower leg. This is a skin infection. Please take all the antibiotics without fail. Please return in 2 days for wound check. Please return sooner should the redness extend out of area that is marked. Prescriptions: Clindamycin HCl [Cleocin 150 mg Capsule] 450 mg PO TID #63 capsule Hydrocodone/Acetaminophen [[place] 5-325 mg Tablet] 1 tab PO Q6H #12 tablet Referrals: CHANTALE PEMBERTON PA-C [Primary Care Provider] - Follow up in 3-5 days
[2020-05-18] MEDS ORDERED: KETOROLAC TROMETHAMINE 60 MG/2 ML SDV IM ONE (20:33)
[2020-05-18] MEDS ORDERED: CLINDAMYCIN HCL 150 MG CAPSULE PO ONE (20:33)
[2020-05-18 20:50] VITALS: BP 137/82
--- NOTE | 2020-05-18 21:12 | RADIOLOGY REPORT (SQ) ---
EXAM DESCRIPTION: US EXTREMITY VEINS UNILATERAL COMPLETED DATE/TME: 05/18/2020 20:16 CLINICAL HISTORY: 55 years, Male, Left lower leg COMPARISON: None. TECHNIQUE: Axial 2-D grayscale images of the left lower extremity were acquired. Doppler was utilized. LIMITATIONS: None. FINDINGS: Left common femoral, femoral, popliteal, posterior tibial, greater saphenous, and small saphenous veins demonstrate normal compressibility and phasicity. The right common femoral vein was also normal. Superficial soft tissues show no suspicious abnormality. IMPRESSION: No evidence of deep venous thrombosis within the left lower extremity. copyright 2010 [employer]- All Rights Reserved
== END 2020-05-18 20:52 | disposition home or self-care (01) ==
LOC: ER 15:48
DX: L03.116 Cellulitis of left lower limb (principal); M79.605 Pain in left leg; J44.9 Chronic obstructive pulmonary disease, unspecified; F17.200 Nicotine dependence, unspecified, uncomplicated; F12.10 Cannabis abuse, uncomplicated
CPT/HCPCS: 99285; 96372; 36415; 85025; 80053; 81001; 93971; J1885

== ENCOUNTER 2020-05-20 08:14 | Emergency (ER) | payer SELFPAY ==
--- NOTE | 2020-05-20 09:22 | ER Document Report ---
ED Skin Rash/Insect Bite/Abscs - General Chief Complaint: Skin Problem Stated Complaint: RECHECK SKIN PROBLEM/LEFT LEG Time Seen by Provider: 05/20/20 09:22 TRAVEL OUTSIDE OF THE [place] IN LAST 30 DAYS: No - HPI Notes: 55-year-old male presents to ED for evaluation of wound check from cellulitis exam 2 days ago. Patient reports he has been taking his antibiotics and notes that he has had no issues with cellulitis spreading beyond the line that was marked. Patient states his pain is decreased, he has no fevers, and feels overall improved. Reports that he has no other complaints at this time. Patient is currently on doxycycline. - Related Data Allergies/Adverse Reactions: No Known Allergies Allergy (Verified 05/18/20 16:08) Past Medical History - Social History Smoking Status: Current Every Day Smoker Frequency of alcohol use: Occasional Drug Abuse: Marijuana Family History: Reviewed & Not Pertinent, CAD - Past Medical History Cardiac Medical History: Denies: Hx Atrial Fibrillation, Hx Congestive Heart Failure, Hx Coronary Artery Disease, Hx DVT, Hx Heart Attack, Hx Hypercholesterolemia, Hx Hypertension, Hx Peripheral Vascular Disease, Hx Pulmonary Embolism Pulmonary Medical History: Reports: Hx COPD - not on any meds, Hx Sleep Apnea - Uses CPAP every night Denies: Hx Asthma Neurological Medical History: Denies: Hx Seizures Endocrine Medical History: Reports: Hx Diabetes Mellitus Type 2 - borderline per pt-not on any meds. Denies: Hx Diabetes Mellitus Type 1, Hx Hyperthyroidism, Hx Hypothyroidism GI Medical History: Denies: Hx Cirrhosis, Hx Crohn's Disease, Hx Hepatitis, Hx Ulcerative Colitis Musculoskeletal Medical History: Denies Hx Arthritis, Denies Hx Gout Skin Medical History: Reports Hx Cellulitis, Denies Hx Eczema, Denies Hx Psoriasis Psychiatric Medical History: Denies: Hx Depression Traumatic Medical History: Denies: Hx Fractures Infectious Medical History: Denies: Hx C-Diff, Hx Hepatitis, Hx HIV, Hx VRE Past Surgical History: Denies: Hx Orthopedic Surgery - Immunizations Immunizations up to date: Yes Review of Systems - Review of Systems Notes: Constitutional: Negative for fever. HENT: Negative for sore throat. Eyes: Negative for visual changes. Cardiovascular: Negative for chest pain. Respiratory: Negative for shortness of breath. Gastrointestinal: Negative for abdominal pain, vomiting or diarrhea. Genitourinary: Negative for dysuria. Musculoskeletal: Negative for back pain. Skin: Erythema to the left anterior olvera in the ED find skin marking Neurological: Negative for headaches, weakness or numbness. 10 point ROS negative except as marked above and in HPI. Physical Exam - Vital signs Vitals: Temp Pulse Resp BP Pulse Ox 98.1 F 80 20 134/67 H 93 05/20/20 08:22 05/20/20 08:22 12 08:22 05/20/20 08:22 05/20/20 08:22 Physical Exam: General: No acute distress. Alert and oriented x3. Sitting comfortably in a stretcher. Skin: Intact without any jaundice, pallor, or erythema. Warm and dry. Heart: Regular rate and rhythm. S1,S2. No murmurs, rubs, or gallops. Lungs: Clear to auscultation bilaterally. No wheezes, rhonchi, rales. Equal chest expansion. No retractions. Abdomen: Soft, nontender to palpation, nondistended. Positive bowel sounds in all 4 quadrants. No hepatosplenomegaly. No masses. Neuro: GCS 15. Moving all extremities without discomfort. Musculoskeletal: Left Leg: The mid to left anterior mid olvera and define skin marking region. Mild warmth. No spreading past pen marking. Mild tenderness. Palpable cords or deformity. Full range of motion of hip, knee, and ankle without discomfort. Knee joint is stable. No calf tenderness. Toes are warm and mobile with brisk capillary refill. Dorsalis pedis pulses 2+ bilaterally. Interpretation: Normal Course - Re-evaluation Re-evalutation: 05/20/20 10:23 55-year-old male presents to ED for evaluation of wound check to the left lower extremity. Patient has been seen here 2 days ago and started on a course of doxycycline for management of left lower extremity cellulitis. Patient reports improvement. Patient does not have any spread of his cellulitis had notes that the area is less warm and erythematous. Patient reports he feels overall improved. Patient was advised he should follow-up with his primary care physician and finish his entire course of antibiotics. Patient also advised to see vascular for follow. Advised to watch his blood sugars. Understands to return to ED. Understands treatment plan. patient is in agreement with care plan. - Vital Signs Vital signs: Temp Pulse Resp BP Pulse Ox 98.1 F 80 20 134/67 H 93 05/20/20 08:22 05/20/20 08:22 05/20/20 08:22 05/20/20 08:22 05/20/20 08:22 Discharge - Discharge Clinical Impression: Encounter for wound re-check, Left leg cellulitis Condition: Stable Disposition: HOME, SELF-CARE Instructions: Cellulitis ([facility]) Additional Instructions: [facility] [phone]
[2020-05-20 10:28] VITALS: BP 132/64
== END 2020-05-20 10:27 | disposition home or self-care (01) ==
LOC: ER 08:14
DX: L03.116 Cellulitis of left lower limb (principal); F17.200 Nicotine dependence, unspecified, uncomplicated; J44.9 Chronic obstructive pulmonary disease, unspecified; E11.9 Type 2 diabetes mellitus without complications
CPT/HCPCS: 99281